=== PATIENT | female | born 1980 | race Caucasian/White ===

== ENCOUNTER → 2024-02-10 06:36 | Day surgery (SDC) | payer BC, SELFPAY ==
[2024-02-10 09:31] LABS: Glucose - Point of Care 203 mg/dl (70-99)
== END ==
LOC: GI 06:36
PROVIDERS: ATTENDING PHYSICIAN Internal Medicine Gastroenterology; FAMILY PHYSICIAN Family Medicine
DX: K62.5 Hemorrhage of anus and rectum (principal); K64.8 Other hemorrhoids; D12.4 Benign neoplasm of descending colon; D12.5 Benign neoplasm of sigmoid colon; R12 Heartburn; K44.9 Diaphragmatic hernia without obstruction or gangrene; K31.7 Polyp of stomach and duodenum
CPT/HCPCS: 45385; 45380; 43239; 88305; 82962